=== PATIENT | female | born 1975 | race Caucasian/White ===

== ENCOUNTER → 2020-02-12 16:04 | Outpatient (CLI) | payer BC, SELFPAY ==
[2020-02-12 16:25] LABS: Basophils # 0.1 K/mm3 (0-0.2); Basophils % 0.7 % (0.1-2.0); Eosinophils # 0.4 K/mm3 (0.0-0.4); Eosinophils % 5.8 % (0.1-12.0); Hematocrit 43.1 % (37.0-47.0); Hemoglobin 14.5 g/dL (12.2-16.2); Lymphocytes # 1.3 K/mm3 (0.7-4.5); Lymphocytes % 20.1 % (10-50); Mean Corpuscular HGB Conc 33.5 g/dL (31.8-35.4); Mean Corpuscular Volume 104.3 fl (81-99); Mean Platelet Volume 7.7 fl (7.4-10.4); Monocytes # 0.5 K/mm3 (0.1-1.0); Monocytes % 7.2 % (1.7-9.3); Neutrophils # 4.4 K/mm3 (1.8-7.8); Neutrophils % 66.2 % (37.0-80.0); Platelet Count 488 K/mm3 (142-424); Red Blood Count 4.13 M/mm3 (4.20-5.40); Red Cell Distribution Width 15.8 % (11.5-17.5); White Blood Count 6.7 K/mm3 (4.8-10.8)
[2020-02-12 16:54] LABS: Anion Gap 12.4 mEq/L (5-15); Blood Urea Nitrogen 12 mg/dl (7-17); Calcium 9.4 mg/dl (8.4-10.2); Carbon Dioxide 26 mmol/L (22.0-30.0); Chloride 106 mmol/L (98-107); Estimated Glomerular Filt Rate 54 ml/min (>60); GFR (African American) 65 ML/MIN (>60); Glucose 102 mg/dl (74-100); Potassium 4.4 mmoL/L (3.5-5.1); Sodium 140 mmol/L (136-145)
[2020-02-12 19:16] LABS: Coronavirus 19 IgG Antibody Negative (Negative); Coronavirus 19 IgM Antibody Negative (Negative)
== END ==
PROVIDERS: Visit Provider Urology
DX: Z01.818 Encounter for other preprocedural examination (principal); Z03.818 Encounter for observation for suspected exposure to other biological agents ruled out; R32 Unspecified urinary incontinence
CPT/HCPCS: 36415; 80048; 85025; 86328

== ENCOUNTER 2020-02-15 06:24 | Day surgery (SDC) | payer BC, SELFPAY ==
[2020-02-12 14:58] VITALS: BMI 34.4
[2020-02-15] VITALS (11 sets, daily range): BP systolic 109–136; BP diastolic 67–98; PULSE 76–89; RESP 16–20; TEMP 36.2–36.4; O2SAT 96–98
[2020-02-15 06:38] LABS: Urine Pregnancy, HCG Qual. Negative (Negative)
--- NOTE | 2020-02-15 07:27 | HMH.ANESCL ---
[facility] Anesthesia Checklist - Patient Identification Patient Identification: Arm Band, Verbal (Name & ) - Structural Data Admitted From: Home Planned Operative Procedure/s: trans taping Consent for Planned Operative Procedure(s) Verified: Yes Verified Documents: History and Physical - NPO Status Verified Time NPO: 00:00 - Chart Verification Results Verified: CBC, BMP - Additional verifications Patient : No Anesthesia Reactions: No Hx Blood Transfusions: No Blood Transfusion Reaction: No Cephalosporin Allergy: No Previous Colonoscopy: No - Cardiovascular Assessment Heart Sounds: S1 & S2 Pulse Strength: Baseline Pulse Rhythm: Regular Peripheral Edema: No - Airway Assessment C-Spine Mobility Assessed: Yes TMJ Mobility Assessed: Yes Dentition: Partials - Neurological Assessment Level of Consciousness: Awake, Alert, Appropriate Hx Seizures: No Numbness or tingling in extremities: No - Anesthesia Plan Anesthesia Risk discussed: Yes Anesthesia Plan: Verified ASA Class: III Anesthesia Type: General [facility] History I have reviewed the patient's past medical history: Yes Medical History: Reports:: Nephritis Denies:: Cancer, Diabetes Mellitus Type 1, Diabetes Mellitus Type 2, Internal Pacemaker, MRSA, Seizures *Have you ever received a pneumonia vaccine?: No *Have you received a flu vaccine this season?: Yes Other Medical History: Reports: Arthritis. Denies: Blood Transfusion Reaction Anesthesia experience/problems:: none Other Surgeries: Yes: No Previous Surgery, Colonoscopy. No: Pacemaker Amputation: No Fractures: No - *Social History Smoking Status: Current every day smoker Tobacco Type: e-cigarettes # Packs/Day (cigarettes): 1 Alcohol Intake: never Substance Use Type: denies use *Occupational Status:: employed Housing: house Household Members: family *Travel in the last 8 weeks: None Family Hx:: Other
--- NOTE | 2020-02-15 08:53 | HMH.ANESI ---
[facility] Anesthesia Record Part I Intake, IV Amount: 600 Estimated blood loss (mL): 5 Urine output (mL): 0 Blood Products used (#): none Blood Pressure: 136/98 SaO2: 96 Pulse Rate: 89 Respiratory Rate: 20 Temperature: 97.6 F Patient is:: Drowsy, Stable Stable to PACU at:: 08:52
--- NOTE | 2020-02-15 09:35 | PC.NURSE ---
0920-filled bladder with 240ml saline and removed catheter. instructed post op nurse to ensure pt voids at least 120ml before discharge.
--- NOTE | 2020-02-15 09:48 | SUR.PHASEII ---
0945-pt ambulated to bathroom- approx 90-100 out
--- NOTE | 2020-02-15 10:23 | SUR.PHASEII ---
1000- ambulated to BR- approx 125ml out in hat.
--- NOTE | 2020-02-15 10:37 | HMH.OPNOTE ---
Date of procedure: 02/15/20 Pre-op Diagnosis:: Stress urinary incontinence Post-op Diagnosis:: Stress urinary incontinence Procedure performed:: Transobturator tape, cystoscopy Surgeon:: Emir Hoffman MD FISH EGG PACKER:: Steve Arechiga Anesthesia: CARLOS A Estimated blood loss (mL): 5 Clinical Note:: Patient is a 44-year-old white female with genuine stress urinary incontinence. She presents for urologic management. Operative findings:: Transobturator taping went without complication. During cystoscopy there was noted to be a false passage just under the bladder neck which was a blind-ending. There is no evidence of foreign body in the bladder or in the false passage. Operative note:: Patient taken to the operating room after informed consent was obtained. Is placed supine on the operating table and general anesthesia administered. Preoperative antibiotics administered and she was then placed into the dorsal lithotomy position. She was prepped and draped in the standard surgical fashion. 16 American Guy catheter passed into the bladder small amount of urine was drained. Into the Guy was then clamped and placed onto the abdomen. Marking pen was used to ayaz the area on the inner thigh just below the insertion of the adductor longus and on a plane equal to the clitoris on each thigh. An Allis clamp was placed onto the tissue just below the urethra and local anesthetic placed into the areas on the inner thighs as well as from her planned incision along the anterior vaginal wall. Small incisions were made into the inner thighs and the anterior vaginal wall 1 cm below the urethral meatus and then a perpendicular line clearly for about 3 cm. Metzenbaum scissors then used to dissect the periurethral space bilaterally. My index finger was then used to place through the incision and palpation of the underside of the ischio pubic rami and blunt dissection of the endopelvic fascia was performed bilaterally. My index finger in the vaginal incision the Obtryx Halo trocar passed into the right thigh incision and around the ischio pubic rami and guided on my finger through the vaginal incision. Examination of the vaginal fornix was performed and there is no evidence of any infection there. The transobturator tape was placed onto the mesh and the mesh was pulled out through the right side. Left index finger was then passed through the vaginal incision and under the left ischio pubic rami and the trocar was then passed through the left thigh incision and around the ischio pubic rami and guided by my finger through the vaginal incision. Again examination of the vaginal fornix revealed no evidence of any effects. The other end of the transobturator tape was placed onto the trocar and pulled out through the left thigh incision. We then removed the Guy catheter and cystoscopy was performed. The bladder was examined in a systematic fashion there is no evidence of any evidence of foreign material or other abnormality. The ureteral orifices in their normal anatomic position. Examination of the bladder neck was normal but just under the bladder neck and the proximal urethra was a false passage that the scope was able to be passed into. Defect was blind-ending and did not communicate with the bladder and there is no evidence of any foreign body here either. 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 Due to the diverticulumI elected to pass a guidewire through the scope and into the bladder. Scope then removed and an 18 [place] tipped Guy catheter was replaced and the bladder drained. The Guy was clamped and placed back onto the abdomen. The ends of the transobturator tape were then pulled up carefully. A curved clamp was placed between the urethra and the tape and the tape was snugged up to the clamp. The ends of the sleeves were then cut and removed from the tap
--- NOTE | 2020-02-15 11:36 | HMH.ANESII ---
[facility] Anesthesia Record Part II Discharge Time: 09:22 Destination: Surgical Day Care (OP Surgery) PACU nurse assessment reviewed?: Yes Patient Condition:: Good Anesthesia Complications:: None Swallowing reflex intact?: Yes Cyanosis?: No Blood Pressure: 123/76 Pulse Rate: 85 Temperature: 97.2 F Mental Status: Alert & Oriented Pain level:: 0 Nausea and/or vomitting:: None Intake, IV Amount: 35
== END 2020-02-15 10:27 | disposition home or self-care (01) ==
LOC: OR 06:25
PROVIDERS: PCP Family Medicine; Visit Provider Urology
PROC: (CPT 57288; principal; 2020-02-15 07:30)
DX: N39.3 Stress incontinence (female) (male) (principal); N36.5 Urethral false passage; Z87.448 Personal history of other diseases of urinary system; Z79.899 Other long term (current) drug therapy; Z72.0 Tobacco use
CPT/HCPCS: 57288; 81025; 96374; C1771; J2405